=== PATIENT | male | born 1975 | race Caucasian/White ===

== ENCOUNTER 2017-07-18 11:58 | Emergency (ER) | payer MEDICARE, SELFPAY ==
[2017-07-18 12:01] VITALS: BP 155/75; PULSE 91; RESP 18; TEMP 36.3; O2SAT 93; BMI 40.6
--- NOTE | 2017-07-18 12:53 | ED.VISSUMM ---
- ER Visit Summary Date of Service: 07/18/17 Chief Complaint: [] Depression History of Present Illness: The patient is a 42 M [] complaining of 2 days of worsening depression. Denies paranoia. Does report a history of schizoaffective disorder compliant with his medications which include Zoloft, Vistaril, monthly envega. Denies suicidal or homicidal ideation. Patient is very conversational, but without pressured speech. Has normal logical sequential goal-directed thoughts. Reports he is here because his family and PCP thought it might be a good idea to get a psychiatric evaluation. Reports she is an established patient at the local counseling center however has not contacted them for these symptoms. Physical Examination: [] Afebrile, vital signs stable. 42-year-old male in no acute distress. Conversational. Cardiovascular exam is regular rate and rhythm. Lungs are clear to auscultation. Abdomen is soft and nontender. Test Results: [] None. Emergency Department Course and Treatment: [] Patient had a very benign presentation both during history and physical exam. He again reiterates that he is in no way homicidal or suicidal. I encouraged him to follow-up with his counselor he was amenable with this plan. Treatment Plan: [] Follow-up with local counseling center. Disposition: [] Discharge, stable. Impression: [] Depression History of schizoaffective disorder This note was generated with [employer] dictation software. It may contain incorrect words, spelling, and punctuation that were not noted in review of the chart prior to signing ED Disposition - Plan for ED Patient: Chief Complaint: Mental Health Referrals: Cade Machado DO [Primary Care Provider] -
--- NOTE | 2017-07-18 12:57 | ED.DEP ---
ED Disposition - Plan for ED Patient: Disposition: Home or Assisted Living Chief Complaint: Mental Health Instructions: ED Depression Referrals: Cade Machado DO [Primary Care Provider] -
[2017-07-18 13:08] VITALS: BP 144/97; PULSE 87; RESP 18; O2SAT 95
== END 2017-07-18 13:16 | disposition home or self-care (01) ==
PROVIDERS: Emergency Provider Emergency Medicine; Family Provider Family Medicine; PCP Family Medicine
DX: F32.9 Major depressive disorder, single episode, unspecified (principal); F25.9 Schizoaffective disorder, unspecified
CPT/HCPCS: 99283

== ENCOUNTER 2017-08-10 18:08 | Emergency (ER) | payer MEDICARE, SELFPAY ==
[2017-08-10 18:09] VITALS: BP 142/89; PULSE 105; RESP 16; TEMP 36.6; O2SAT 97; BMI 39.2
[2017-08-10] MEDS: Clindamycin HCl 150 MG Capsule 300 MG PO (18:25)
[2017-08-10] MEDS: Famotidine 20 MG Tablet 40 MG PO (18:25)
--- NOTE | 2017-08-10 18:28 | ED.DCSUM_ITS ---
- ER Visit Summary Date of Service: 08/10/17 Chief Complaint: Pruritic red rash History of Present Illness: The patient is a 42 M who presents with a pruritic red rash for 2 weeks. He denies history of being in a hot tub. He denies wheezing or difficulty breathing. He denies nausea or vomiting or orthostatic symptoms. He denies any chest pain or difficulty breathing. No one else at home has a rash. He states he has been applying diaper cream rash medicine with no benefit. He denies fever, chills or night sweats. Denies weight gain over the past several years. He denies any ocular, visual or auditory symptoms. He denies any cardiac respiratory symptoms. Denies GI symptoms. He denies swelling of his lips, tongue or throat. Physical Examination: Vital signs are marked for an elevated blood pressure 142/ 89. Heart rate 105. Head is atraumatic normocephalic. Pupils are equal round reactive. Extraocular muscles are intact. TMs are pearly white with landmarks noted. Nares patent with no drainage. Posterior pharynx without erythema or exudate. Uvula is midline. There is no evidence of angioedema. There is no dysphonia or dysphasia. Trachea is midline. There is no stridor with auscultation of the neck. Heart is regular without murmur, gallop or rub. S1 and S2 are normal. Lungs are clear to auscultation with good movement of air bilaterally. Abdomen is soft nontender. Patient has evidence of folliculitis as well as urticaria. Neuro exam is nonfocal. Test Results: None Emergency Department Course and Treatment: 300 mg clindamycin p.o. and Pepcid p.o. Treatment Plan: Prescription for clindamycin and Pepcid and follow-up with primary care physician Dr. Cade Machado Disposition: Discharged to home with appropriate home-going instructions Impression: 1. Pruritic erythematous rash, urticaria 2. Folliculitis This note was generated with [employer] dictation software. It may contain incorrect words, spelling, and punctuation that were not noted in review of the chart prior to signing ED Disposition - Plan for ED Patient: Disposition: Home or Assisted Living Chief Complaint: Allergic Reaction Instructions: ED Folliculitis, ED Urticaria Prescriptions: Famotidine [Pepcid] 20 mg PO BID #10 tab Clindamycin HCl 300 mg PO 4X/DAY #30 cap Referrals: Cade Machado DO [Primary Care Provider] - 1 Week if not improving
[2017-08-10 18:33] VITALS: PULSE 92; RESP 16; O2SAT 98
== END 2017-08-10 18:34 | disposition home or self-care (01) ==
PROVIDERS: Emergency Provider Emergency Medicine; Family Provider Family Medicine; PCP Family Medicine
DX: L50.9 Urticaria, unspecified (principal); L29.9 Pruritus, unspecified; L73.9 Follicular disorder, unspecified; E66.9 Obesity, unspecified; J45.909 Unspecified asthma, uncomplicated
CPT/HCPCS: 99283

== ENCOUNTER 2017-08-22 07:01 | Emergency (ER) | payer MEDICARE, SELFPAY ==
[2017-08-22 07:02] VITALS: BP 132/94; PULSE 98; RESP 16; TEMP 36.8; O2SAT 95; BMI 39.3
--- NOTE | 2017-08-22 07:24 | ED.DCSUM_ITS ---
- ER Visit Summary Date of Service: 08/22/17 Chief Complaint: [] Vomiting diarrhea since Saturday exposed to bad chicken History of Present Illness: The patient is a 42 M [] patient reports that he has schizoaffective disorder that stable he is on all of his meds he indicates he began having vomiting Saturday so did his after they attended awake where they believe that he ate some spoiled chicken, he also has had copious diarrhea, no fever no cough no chest pain abdominal pain he has no history of GI elements no antibiotics no blood per rectum or stool the vomiting and the diarrhea persisted he came in today for evaluation he states his vomiting copiously and having copious diarrhea as well. Indicates his is improved Physical Examination: [] Vital signs are within normal range she is in no distress his head neck chest exam unremarkable his lungs are clear the abdomen is obese but soft and nontender there is no rebound guarding or megaly the back is unremarkable skin is normal upper lower extremities unremarkable neurologically he is awake alert in no distress Test Results: [] Emergency Department Course and Treatment: [] Ported vomiting and diarrhea related to food as above with similar symptoms but she is improved he has had no fever no blood per rectum or stool or vomit. Clinically looks well his vital signs are normal at this time screening labs IV fluids IV Zofran Treatment Plan: [] The patient's lab studies are generally unremarkable please see those reports he has had no vomiting or diarrhea while he has been in the ED he is given a fluid challenge without difficulty. Abdomen remains soft and nontender on reevaluation, clinically looks well, at this time we will maintain a bland diet fluids Zofran follow-up his family doctor and return for change in symptoms he is comfortable with this plan Disposition: [] Home stable Impression: [] Reported vomiting and diarrhea This note was generated with [employer] dictation software. It may contain incorrect words, spelling, and punctuation that were not noted in review of the chart prior to signing ED Disposition - Plan for ED Patient: Chief Complaint: Nausea/Vomiting/Diarrhea Referrals: Cade Machado DO [Primary Care Provider] -
[2017-08-22] MEDS: 0.9% Normal Saline 1,000 ML 1000 ML IV (07:36)
[2017-08-22] MEDS: Ondansetron 4 MG/2 ML Vial IV (07:36)
[2017-08-22 07:40] LABS: Absolute Lymphocyte Count 1.17 X10^3/ul (0.83-4.51); Absolute Neutrophil Count 4.7 X10^3/uL (2.0-7.7); Basophil# 0.01 X10^3/uL; Basophil% 0.1 % (0-1); Color, Urine Yellow (Yellow); Eosinophil# 0.09 X10^3/uL; Eosinophils% 1.3 % (0-5); Glucose, Dipstick Normal (Normal); Hematocrit 47.8 % (40-54); Hemoglobin 15.7 g/dl (13.0-16.5); Ketone-Dipstick 5 mg/dl (Negative); Leukocyte Esterase-Dipstick 25 /ul (Negative); Lymphocyte # 1.17 X10^3/ul (4.0); Lymphocyte % 17.4 % (19-41); Mean Corp Hgb Conc 32.8 g/gl (32-36); Mean Corpuscular Volume 85.2 fL (80-94); Mean Platelet Vol. 9.5 fl (6.2-12.0); Monocyte# 0.73 X10^3/uL; Monocyte% 10.8 % (0-10); Neutrophil # 4.72 X10^3/uL (2.7-7.7); Neutrophil % 70.3 % (47-70); Nitrite-Dipstick Negative (Negative); Occult Blood-Urine 10 /ul (Negative); Platelet Count 150 K/mm3 (150-450); Protein-Dipstick 15 mg/dl (Negative); RBC Distribution Width CV 13.9 % (11.6-14.6); RBC Distribution Width SD 43.3 fl (35.1-43.9); Red Blood Count 5.61 M/mm3 (4.6-6.2); Specific Gravity, Urine 1.025 (1.002-1.030); Urine Clarity Sl. Cloudy (Clear); Urine Urobilinogen 4 mg/dl (Normal); White Blood Count 6.7 K/mm3 (4.4-11.0)
[2017-08-22 07:41] LABS: Urine Bilirubin Dipstick 1 mg/dL (Negative)
[2017-08-22 07:44] LABS: POSITIVE COUNT NO; POSITIVE DIFFERENTIAL NO; POSITIVE MORPHOLOGY NO
[2017-08-22 07:52] LABS: AST(SGOT) 32 U/L (15-37); Alanine Aminotransfer ALT/SGPT 63 U/L (16-61); Albumin, Serum 3.6 g/dL (3.2-5.0); Alkaline Phosphatase 92 U/L (45-117); Anion Gap 7 (5-15); BUN 13 mg/dL (7-18); BUN/Creat Ratio 13.8 RATIO (10-20); Bilirubin, Direct 0.24 mg/dL (0.00-0.30); Calcium,Total 8.7 mg/dL (8.5-10.1); Chloride 104 mmol/L (98-107); Creatinine, Serum 0.94 mg/dL (0.70-1.30); EST Glomerular Filtration Rate 93 mL/min (>60); Est Glom Filt Rate - Afr Amer 113 mL/min (>60); Estimated Creatinine Clearance 112.36 ml/min; Globulin 4.2 g/dL (2.2-4.2); Glucose 107 mg/dL (74-106); Lipase 99 U/L (73-393); Potassium 3.8 mmol/L (3.5-5.1); Protein, Total 7.8 g/dL (6.4-8.2); Sodium Level 139 mmol/L (136-145)
[2017-08-22 07:56] LABS: Mucous, Urine 1+ /hpf (<or=2+)
[2017-08-22 07:57] LABS: Bacteria 1+ /hpf (None Seen); Red Blood Cells-Urine 0-5 SEEN /hpf (0-5); Squamous Epithelial Cells - UA 0-5 SEEN /hpf (0-5); White Blood Cells 0-5 SEEN /hpf (0-5)
--- NOTE | 2017-08-22 08:00 | ED.DEP ---
ED Disposition - Plan for ED Patient: Chief Complaint: Nausea/Vomiting/Diarrhea Instructions: ED Diet Vomiting Diarrhea Prescriptions: Ondansetron [Zofran Odt] 4 mg PO Q8H PRN PRN #10 tab PRN Reason: Nausea Referrals: Cade Machado DO [Primary Care Provider] -
== END 2017-08-22 09:05 | disposition home or self-care (01) ==
PROVIDERS: Emergency Provider Emergency Medicine; Family Provider Family Medicine; PCP Family Medicine
DX: R19.7 Diarrhea, unspecified (principal); R11.2 Nausea with vomiting, unspecified
CPT/HCPCS: 80048; 80076; 81001; 83690; 85025; 99284; J7030; A4216

== ENCOUNTER 2017-08-29 09:31 | Emergency (ER) | payer MEDICARE, SELFPAY ==
[2017-08-29 09:32] VITALS: BP 135/101; PULSE 105; RESP 16; TEMP 36.4; O2SAT 95; BMI 38.0
[2017-08-29] MEDS: Ondansetron ODT 4 MG Tablet PO (09:38)
--- NOTE | 2017-08-29 09:38 | ED.VISSUMM ---
- ER Visit Summary Date of Service: 08/29/17 Chief Complaint: Head injury History of Present Illness: The patient is a 42 M presents to the emergency department with head injury. Patient was at home mopping his floor. He states he picked up the handle of the mop and struck a light fixture that was above him. It shattered the globe and the globe him on the head. He states that he felt dizzy but did not lose consciousness. He does not take anticoagulants. He states he has been mildly nauseated with headache since. He actually presented by squad. He states that he noticed a little bit of blood on his hand and thought he was bleeding from his head. He denies any visual change. He denies any weakness, numbness, or tingling. Physical Examination: Vital signs reviewed General: Well-nourished, well-developed Head: Normocephalic, atraumatic superficial abrasion of the left cheek, no laceration or contusion of the scalp Eyes: Pupils equal and reactive, extraocular muscles intact Neck, supple, no lymphadenopathy Heart: Regular rate and rhythm Respiratory: No distress, clear bilaterally Abdomen: Soft, nontender, nondistended, no peritoneal signs Back: Nontender Extremities: Nontender, no edema, no cords Skin: Normal color no rash Neuro: Alert and oriented, no focal or lateralizing deficits Test Results: [] Emergency Department Course and Treatment: I did spend time going through the patient's hairline and scalp. There is no evidence of laceration or retained foreign body. There was no active bleeding. He had a superficial abrasion of the face. His eyes are normal. There is no evidence of globe injury. The patient might have a mild concussion given his nausea. The patient was given Zofran and Naprosyn. He was observed. He had improvement of his symptoms. He continues to have a benign neurologic examination. He is a GCS of 15. There was no loss of consciousness. He do not feel head CT is necessary. She will be discharged with anti-inflammatories and antiemetics. He is counseled return with any worsening symptoms. Treatment Plan: [] Disposition: Discharge Impression: 1. Concussion 2. Facial abrasion This note was generated with [employer] software. It may contain incorrect words, spelling, and punctuation that were not noted in review of the chart prior to signing ED Disposition - Plan for ED Patient: Chief Complaint: Laceration Instructions: ED Concussion Prescriptions: Ondansetron [Zofran Odt] 4 mg PO Q8H PRN PRN #10 tab PRN Reason: Nausea Naproxen [Naprosyn] 500 mg PO BID PRN #20 tab Referrals: Cade Machado DO [Primary Care Provider] -
[2017-08-29] MEDS: Naproxen 500 MG Tablet PO (09:57)
[2017-08-29 10:05] VITALS: BP 143/98; PULSE 81; RESP 22; O2SAT 97
--- NOTE | 2017-08-29 10:06 | ED.RN ---
THIS NURSE REVIEWED D/C INSTRUCTIONS WITH PT.PT VERBALIZED UNDERSTANDING OF INSTRUCTIONS. PT DENIES FURTHER NEEDS OR QUESTIONS AT THIS TIME. PT AMBULATES FROM ROOM ON OWN WITHOUT ASSISTANCE FROM STAFF
== END 2017-08-29 10:07 | disposition home or self-care (01) ==
LOC: ED 10:04
PROVIDERS: Emergency Provider Emergency Medicine; Family Provider Family Medicine; PCP Family Medicine
DX: S06.0X0A Concussion without loss of consciousness, initial encounter (principal); S00.91XA Abrasion of unspecified part of head, initial encounter; W20.8XXA Other cause of strike by thrown, projected or falling object, initial encounter; Y93.E5 Activity, floor mopping and cleaning; Y92.009 Unspecified place in unspecified non-institutional (private) residence as the place of occurrence of the external cause; Y99.9 Unspecified external cause status; Z72.0 Tobacco use; F31.9 Bipolar disorder, unspecified
CPT/HCPCS: 99285

== ENCOUNTER 2018-01-10 21:12 | Emergency (ER) | payer MEDICARE, SELFPAY ==
[2018-01-10 21:13] VITALS: BP 117/80; PULSE 94; RESP 14; TEMP 36.8; O2SAT 97; BMI 40.2
--- NOTE | 2018-01-10 21:35 | ED.VISSUMM ---
- ER Visit Summary Date of Service: 01/10/18 Chief Complaint: Francisco Javiero Platt History of Present Illness: The patient is a 42 M patient presenting for evaluation secondary to a GI illness. Patient reports that he ate Francisco Javiero Platt today, and shortly thereafter he started to get severe abdominal cramping and profuse watery nonbloody non-mucousy diarrhea. Patient reports that he has had up to 5 episodes of this diarrhea. He states that he has nausea but no vomiting. His abdominal pain is crampy and nonlocalizing with no exacerbating relieving factors. Has been associated with any sort of fever or urinary symptoms. Nobody else in the family has anything similar. Patient endorses a headache associated with this denies any visual changes numbness or weakness. Physical Examination: Vital signs are within normal limits, patient is afebrile. General: Patient is well-nourished well-developed and in no acute distress. Head: Normocephalic, atraumatic Eyes: Pupils equal round and reactive bilaterally, extra occular motion intact bialterally ENT: Moist mucous membranes Neck: Supple, no lymphadenopathy, no JVD, no meningismus CVS: Heart regular rate and rhythm, no murmurs, rubs or gallops, radial pulses 2+ bilaterally Resp: Respirations nondistressed, lung sounds clear bilaterally Abdomen: Soft, minimal nonlocalizing abdominal tenderness with no guarding or rebound noted, nondistended, no palpable masses, normal bowel sounds Back: Nontender Extremities: Nontender, atraumatic, active full range of motion, no peripheral edema Skin: warm, no rashes, no petechia Neuro: Alert and oriented x 4, CN 2-12 intact, no lateralizing neurological defecits Psyc: Normal affect Test Results: None indicated Emergency Department Course and Treatment: Patient presented for evaluation secondary to a GI illness. He has benign physical exam, appears well-hydrated, and I do not believe that there is any indication for imaging or lab tests at this time. Patient was treated symptomatically with Toradol Bentyl and Imodium. He will be discharged with a course of Bentyl. He was recommended on aggressive hydration and follow-up with primary care as needed Disposition: Discharge Impression: 1. Enteritis This note was generated with [employer] dictation software. It may contain incorrect words, spelling, and punctuation that were not noted in review of the chart prior to signing ED Disposition - Plan for ED Patient: Disposition: Home or Assisted Living Chief Complaint: Nausea/Vomiting/Diarrhea Diagnosis: Enteritis Instructions: ED Gastroenteritis Vs Food Poison Prescriptions: Dicyclomine HCl [Bentyl] 20 mg PO TIDAC #20 cap Referrals: Cade Machado DO [Primary Care Provider] - As Needed
[2018-01-10] MEDS: Loperamide 2 MG Capsule 4 MG PO (21:41)
[2018-01-10] MEDS: Dicyclomine 10 MG Capsule 20 MG PO (21:41)
[2018-01-10] MEDS: Ketorolac 30 MG/ML Syringe IM (21:41)
== END 2018-01-10 21:51 | disposition home or self-care (01) ==
PROVIDERS: Emergency Provider Emergency Medicine; Family Provider Family Medicine; PCP Family Medicine
DX: K52.9 Noninfective gastroenteritis and colitis, unspecified (principal)
CPT/HCPCS: 96372; 99283

== ENCOUNTER 2018-05-23 17:02 | Emergency (ER) | payer MEDICARE, SELFPAY ==
[2018-05-23 17:04] VITALS: BP 141/86; PULSE 89; RESP 18; TEMP 36.6; O2SAT 99; BMI 36.6
--- NOTE | 2018-05-23 17:25 | ED.VISSUMM ---
- ER Visit Summary Date of Service: 05/23/18 Chief Complaint: Headache History of Present Illness: The patient is a 43 M presenting with headache, neck pain. He states this has been ongoing for the past 4 days. It was gradual in onset and has been worsening. He has taken Tylenol at home with some relief. He denies trauma. Denies fever. He has pain that starts both sides of his neck and radiates to the back of his head. Denies other complaints. Physical Examination: Vitals are stable. Patient is afebrile. Alert no acute distress. HEENT exam is unremarkable. Neck is supple. No meningismus Lungs are clear and equal bilaterally. Heart is regular rate and rhythm. Extremities are unremarkable. Skin is warm and dry. No focal neurologic deficit. Normal strength and sensation Remainder of exam is unremarkable. Emergency Department Course and Treatment: Patient was given Reglan, Benadryl. On reevaluation, he is feeling improved. He is given prescription for Naprosyn. He is advised to follow-up with his primary care physician. Advised return to ED if worsening complaints. Disposition: Discharge home Impression: Tension headache This note was generated with [employer] dictation software. It may contain incorrect words, spelling, and punctuation that were not noted in review of the chart prior to signing ED Disposition - Plan for ED Patient: Instructions: ED Headache Tension Prescriptions: Naproxen [Naprosyn] 500 mg PO BID PRN #20 tablet Referrals: Cade Machado DO [Primary Care Provider] -
[2018-05-23] MEDS: 0.9% Normal Saline 1,000 ML 999 ML IV (17:34)
[2018-05-23] MEDS: DiphenhydrAMINE 50 MG/ML Syringe 25 MG IV (17:34)
[2018-05-23] MEDS: Metoclopramide 10 MG/2 ML Vial 5 MG IV (17:34)
--- NOTE | 2018-05-23 18:27 | ED.DEP ---
ED Disposition - Plan for ED Patient: Instructions: ED Headache Tension Prescriptions: Naproxen [Naprosyn] 500 mg PO BID PRN #20 tablet Referrals: Cade Machado DO [Primary Care Provider] -
[2018-05-23 18:42] VITALS: BP 129/96; PULSE 90; RESP 18; O2SAT 98
== END 2018-05-23 18:43 | disposition home or self-care (01) ==
LOC: ED 18:36
PROVIDERS: Emergency Provider Emergency Medicine; Family Provider Family Medicine; PCP Family Medicine
DX: G44.209 Tension-type headache, unspecified, not intractable (principal); M54.2 Cervicalgia; F41.9 Anxiety disorder, unspecified; F20.9 Schizophrenia, unspecified
CPT/HCPCS: 96361; 96374; 96375; 99283; J7030

== ENCOUNTER 2018-06-30 11:52 | Emergency (ER) | payer MEDICARE, SELFPAY ==
[2018-06-30 11:54] VITALS: BP 132/79; PULSE 94; RESP 17; TEMP 36.8; O2SAT 94; BMI 40.2
--- NOTE | 2018-06-30 13:06 | ED.DCSUM_ITS ---
- ER Visit Summary Date of Service: 06/30/18 Chief Complaint: Back pain History of Present Illness: The patient is a 43 M who presents the emergency department with 3 days of low back pain. He states that it began during the night. He states is progressively gotten worse. He notes he feels some pain radiating down the back of his left leg. He denies any trauma. No previous back injuries. No bowel or bladder dysfunction. No IV drug use. No rashes or fevers. Physical Examination: Afebrile vital signs stable Gen: Well-nourished well-developed Head: Normocephalic atraumatic Eyes: Perrl EOMI ENT: TMs clear no rhinorrhea moist mucous membranes Neck: Supple no lymphadenopathy no JVD nontender CVS: Regular rate rhythm no murmurs normal S1-S2 Respiratory: No distress clear to auscultation bilaterally chest nontender Abdomen: Soft nontender nondistended normal bowel sounds no masses Back: Lower lumbar paraspinal musculature that is tender to palpation. He has painful range of motion. Extremity: Nontender no edema Skin: Normal color no rash Neuro: alert orientated ?3 CN II-XII intact normal strength sensation reflexes gait cerebellar Psych: Normal affect normal mood Emergency Department Course and Treatment: Patient will be started on Motrin and Flexeril. I encouraged him to begin a stretching routine if he is not improving he would benefit from physical therapy as well as weight loss. Patient understands this plan and is comfortable with it. Impression: 1. Lumbar muscle spasm acute This note was generated with [employer] dictation software. It may contain incorrect words, spelling, and punctuation that were not noted in review of the chart prior to signing ED Disposition - Plan for ED Patient: Disposition: Home or Assisted Living Instructions: ED Spasm Back No Trauma Prescriptions: Ibuprofen [Motrin] 800 mg PO TID PRN PRN #20 tab PRN Reason: Pain Cyclobenzaprine [Flexeril] 10 mg PO TID PRN #15 tab PRN Reason: Muscle Spasm Referrals: Cade Machado DO [Primary Care Provider] - 1 Week if not improving
[2018-06-30 13:48] VITALS: PULSE 89; RESP 14; O2SAT 99
== END 2018-06-30 13:48 | disposition home or self-care (01) ==
PROVIDERS: Emergency Provider Emergency Medicine; Family Provider Family Medicine; PCP Family Medicine
DX: M62.830 Muscle spasm of back (principal); F20.9 Schizophrenia, unspecified
CPT/HCPCS: 99282

== ENCOUNTER → 2018-07-08 10:37 | Outpatient (CLI) | payer MEDICARE, SELFPAY ==
[2018-06-30 11:54] VITALS: BMI 40.2
[2018-07-08 12:27] LABS: Amphetamine Urine VISTA NEGATIVE (<1000 ng/mL); Barbiturate Urine VISTA NEGATIVE (< 200 ng/mL); Benzodiazepine Urine VISTA NEGATIVE (< 200 ng/mL); Cocaine Urine VISTA NEGATIVE (< 300 ng/mL); Ecstacy Urine VISTA NEGATIVE (< 500 ng/mL); Methadone Urine VISTA NEGATIVE (< 300 ng/mL); PCP Urine VISTA NEGATIVE (< 25 ng/mL); THC Urine VISTA NEGATIVE (< 50 ng/mL); Vista UDS pH Range 5
== END ==
PROVIDERS: Family Provider Family Medicine; PCP Family Medicine; Referring Provider Psychiatry & Neurology Psychiatry; Visit Provider Psychiatry & Neurology Psychiatry
DX: F19.10 Other psychoactive substance abuse, uncomplicated (principal); Z79.899 Other long term (current) drug therapy
CPT/HCPCS: 80307

== ENCOUNTER → 2018-12-02 07:50 | Outpatient (CLI) | payer MEDICARE, SELFPAY ==
--- NOTE | 2018-12-02 08:05 | RAD_ITS ---
CLINICAL HISTORY: Male, 45 years old. GERD, with history of pneumonia, possibly aspiration PROCEDURE: Esophagram Technique: Multiple fluoroscopic assessment performed after administration of double contrast medium, followed by single contrast medium with images acquired along the esophagus. Findings: Single and also double contrast study of the esophagus demonstrate that there is unremarkable mucosal pattern of the esophagus, without evidence of intraluminal lesion or stricture. Overall unremarkable peristalsis through the esophagus. There is no evidence of Zenker's diverticulum proximally. There is mild degree of gastroesophageal reflux, up to the distal one third of esophagus. No evidence of sliding hiatal hernia is noted. Evaluation with a 0.5 inch barium pill demonstrates unremarkable peristalsis through the esophagus, with unremarkable emptying into the stomach without delay. RAD/Esophagus Only IMPRESSION: Mild reflux to distal one third of the esophagus at the gastroesophageal junction. Unremarkable mucosal pattern of the esophagus. No evidence of focal stricture or narrowing. No evidence of Zenker's diverticulum. No evidence of sliding hiatal hernia is noted. Normal peristalsis of a 0.5 inch through the esophagus and the gastroesophageal junction. Electronically Signed: Cain Sanchez MD at 14:49 EDT Tel [phone], Service support ,
== END ==
PROVIDERS: Family Provider Family Medicine; PCP Family Medicine; Referring Provider Otolaryngology; Visit Provider Otolaryngology
DX: R13.10 Dysphagia, unspecified (principal); K21.9 Gastro-esophageal reflux disease without esophagitis
CPT/HCPCS: 74220

== ENCOUNTER → 2020-09-23 09:47 | Outpatient (CLI) | payer MEDICARE, SELFPAY ==
[2019-03-10 10:45] VITALS: BMI 40.2
[2020-09-23 10:04] LABS: Hematocrit 46.1 % (40-54); Hemoglobin 14.4 g/dL (13.0-16.5); Mean Corp Hgb Conc 31.2 g/dL (32-36); Mean Corpuscular Hgb 26.9 pg (27.0-32.0); Mean Platelet Vol. 9.7 fl (6.2-12.0); Platelet Count 156 K/mm3 (150-450); RBC Distribution Width SD 46.8 fl (35.1-43.9); Red Blood Count 5.36 M/mm3 (4.6-6.2); White Blood Count 6.2 K/mm3 (4.4-11.0)
[2020-09-23 10:22] LABS: Hemoglobin A1c 5.9 % (3.8-5.6)
[2020-09-23 10:32] LABS: Vitamin B12 1155 pg/mL (211-911); Vitamin D,25 Hydroxy 10.8 ng/mL
[2020-09-23 11:30] LABS: ALB/GLOB Ratio 0.8 RATIO (0.9-2.4); AST(SGOT) 102 U/L (15-37); Alanine Aminotransfer ALT/SGPT 133 U/L (16-61); Albumin, Serum 3.4 g/dL (3.2-5.0); Alkaline Phosphatase 121 U/L (45-117); Anion Gap 6 (5-15); BUN 10 mg/dL (7-18); BUN/Creat Ratio 9.7 RATIO (10-20); Calcium,Total 8.5 mg/dL (8.5-10.1); Chloride 105 mmol/L (98-107); Cholesterol 176 mg/dL (200); Creatinine, Serum 1.03 mg/dL (0.70-1.30); EST Glomerular Filtration Rate 83 mL/min (>60); Est Glom Filt Rate - Afr Amer 100 mL/min (>60); Globulin 4.5 g/dL (2.2-4.2); Glucose 126 mg/dL (74-106); High Density Lipoprotein 45 mg/dL; Potassium 4.2 mmol/L (3.5-5.1); Prolactin 18.6 ng/mL; Protein, Total 7.9 g/dL (6.4-8.2); Sodium Level 139 mmol/L (136-145); Thyroid Stim Hormone (TSH) 2.05 uIU/mL (0.358-3.74); Triglycerides 94 mg/dL; Very Low Density Lipoprotein 19 mg/dL (5-40)
== END ==
PROVIDERS: Referring Provider Psychiatry & Neurology Psychiatry; Visit Provider Psychiatry & Neurology Psychiatry
DX: R53.83 Other fatigue (principal); Z79.899 Other long term (current) drug therapy
CPT/HCPCS: 36415; 80053; 80061; 82140; 82306; 82607; 82746; 83036; 84146; 84443; 85027

== ENCOUNTER 2020-11-21 15:25 | Emergency (ER) | payer MEDICARE, SELFPAY ==
[2019-03-10 10:45] VITALS: BMI 40.2
[2020-11-21 15:27] VITALS: BP 151/94; PULSE 88; RESP 14; TEMP 36.1; O2SAT 96; BMI 46.1
== END 2020-11-21 16:35 ==
LOC: ED 16:49
DX: S49.90XA Unspecified injury of shoulder and upper arm, unspecified arm, initial encounter (principal)

== ENCOUNTER 2021-11-18 17:21 | Emergency (ER) | payer MEDICARE, MEDICAID, SELFPAY ==
[2021-11-18 17:22] VITALS: BP 136/81; PULSE 108; RESP 15; TEMP 36.8; O2SAT 94; BMI 36.6
--- NOTE | 2021-11-18 17:47 | EX.ED.DYSGE1 ---
HPI History of Present Illness Chief Complaint: General Illness Narrative Narrative: 46-year-old male presenting with fever, chills, body aches, headache since earlier today. He states he last took Tylenol at 8 AM. He states he has had both of his COVID vaccines. Patient has no known sick contacts. No nausea or vomiting. He is coughing a little bit but no production of sputum. PFSH PFS Medical History Arthritis Home Medications sertraline 100 mg tablet 150 mg PO DAILY 05/24/16 [History Last Taken 08/10/17] ibuprofen 800 mg tablet 800 mg PO TID PRN PRN Pain #20 tabs 06/30/18 [Rx Last Taken Unknown] Allergy/AdvReac Type Severity Reaction Status Date / Time egg Allergy Anaphylaxis Verified 11/18/21 17:26 morphine Allergy Rash Verified 11/18/21 17:26 Penicillins Allergy Rash Verified 11/18/21 17:26 Family History Other Dementia Social History Smoking Status: Never smoker alcohol intake: never ROS ROS ED Constitutional Constitutional ED: Reports chills and fever(s) Eyes Eyes: Denies change in vision or diplopia ENT ENT ED: Reports sore throat; Denies rhinorrhea Cardiovascular Cardiovascular: Denies chest pain or palpitations Respiratory/Chest Respiratory/Chest: Reports cough; Denies dyspnea or dyspnea on exertion Gastrointestinal Gastrointestinal: Denies abdominal pain, constipation or diarrhea Genitourinary Genitourinary ED: Denies dysuria or hematuria Musculoskeletal Musculoskeletal: Denies arthralgias or back pain Integumentary Denies abscess or Abrasions Neurologic Neurologic: Reports headache(s); Denies paresthesias or weakness Psychiatric Psychiatric: Denies anxiety or depression EXAM Physical Exam Const Vital Signs: 11/18/21 17:22 11/18/21 18:08 Temperature 98.3 F Temperature Source Temporal Pulse Rate 108 H Respiratory Rate 15 Respiratory Effort Normal Non-Labored Respiratory Pattern Normal Blood Pressure 136/81 H Blood Pressure Mean 99 Pulse Ox 94 Oxygen Delivery Method Room Air Positive well nourished General Appearance ED: NAD; Negative for pallor HEENT Reports moist mucous membranes Negative for trauma Eyes PERRL and EOMs intact bilaterally General Eye ED: Negative for pale conjunctiva or scleral icterus Neck no lymphadenopathy Chest Wall inspection of chest normal and palpation of chest normal Resp normal respiratory effort and clear to auscultation bilaterally Cardio regular rate and regular rhythm GI normal to inspection, nondistended, normoactive bowel sounds Extremity General Extremety ED: Yes edema and tenderness General Extremity: edema Neuro oriented x3 and CN's II-XII intact bilaterally Sensorium / Orientation: alert Psych mental status grossly normal Skin no rashes or lesions noted General Skin Exam: Negative for jaundice or pallor MDM MDM MDM Narrative Medical decision making narrative: Patient presenting with viral syndrome. He states he took his last medication 8 AM. He was given ibuprofen here. Rapid COVID is negative. Vital signs are stable and he is afebrile. Lungs clear to auscultation bilaterally. Heart regular rate and rhythm without murmur. Abdomen soft nontender. Patient counseled on alternate Tylenol and ibuprofen at home for body aches, headache, fevers. He is given return precautions. I feel he stable for discharge. Impression: 1. Febrile illness 2. Myalgias 3. Viral syndrome 4. Headache Lab Data Attestation: I reviewed the patient's lab results. Discharge Plan Triage Chief Complaint: General Illness ED Provider: Wander Adhikari Dx/Rx/DC Orders Instructions: ED Viral Syndrome (Adult) Prescriptions: No Action sertraline 100 MG tablet 150 mg PO DAILY ibuprofen 800 MG tablet 800 mg PO TID PRN PRN (Reason: Pain) Qty: 20 0RF Primary Care Provider: Ryan East Referrals: Ryan East MD [Primary Care Provider] - Disposition Disposition: Home, Self Care
[2021-11-18] MEDS: Ibuprofen 600 MG Tablet PO (18:07)
== END 2021-11-18 19:43 | disposition home or self-care (01) ==
PROVIDERS: Emergency Provider Student in an Organized Health Care Education/Training Program; PCP Family Medicine; Visit Provider Student in an Organized Health Care Education/Training Program
DX: B34.9 Viral infection, unspecified (principal); R51.9 Headache, unspecified; M79.10 Myalgia, unspecified site; R68.83 Chills (without fever); R50.9 Fever, unspecified
CPT/HCPCS: 87811; 99283

== ENCOUNTER 2022-01-21 23:55 | Emergency (ER) | payer BC, MEDICAID, SELFPAY ==
[2022-01-21 23:56] VITALS: BP 145/87; PULSE 114; RESP 20; TEMP 36.8; O2SAT 95; BMI 46.7
[2022-01-22] MEDS: HYDROmorphone 0.5 MG/0.5 ML SYRINGE IM (00:37)
[2022-01-22] MEDS: cycloBENZAPRine HCl 10 MG Tablet PO (00:37)
--- NOTE | 2022-01-22 01:50 | EDS_ITS ---
HPI History of Present Illness Chief Complaint: Back Informant: patient Narrative Narrative: Patient is a 46-year-old male with history of schizophrenia unspecified presenting with back pain. Patient states he helped his sister move a couch couple days ago and felt a pull/pop in his mid back. Since then he has had significant pain in his back. It is worse when he tries to lay flat or when he walks/moves around. States he intermittently gets tingling in the front of his thigh that radiates to his medial lower leg. Denies any pain in his leg. Denies any bowel or bladder incontinence. Denies any fever or chills. Denies any saddle anesthesia. Has been taking Advil and Motrin with no significant relief of his symptoms. Was laying down tonight and the pain was so bad he felt short of breath which is what brought him to the emergency room. Denies any history of any back issues. No other complaints at this time. [facility] Medical History Arthritis Home Medications cyclobenzaprine 10 mg tablet 10 mg PO TID PRN muscle spasm #20 tabs 01/22/22 [Rx Last Taken Unknown] Allergy/AdvReac Type Severity Reaction Status Date / Time egg Allergy Anaphylaxis Verified 01/22/22 00:00 morphine Allergy Rash Verified 01/22/22 00:00 Penicillins Allergy Rash Verified 01/22/22 00:00 Family History Other Dementia Social History Smoking Status: Never smoker alcohol intake: never ROS ROS ED Constitutional Constitutional ED: Denies chills or fever(s) Eyes Eyes: Denies change in vision ENT ENT ED: Denies ear pain or rhinorrhea Cardiovascular Cardiovascular: Denies chest pain Respiratory/Chest Respiratory/Chest: Reports dyspnea; Denies dyspnea on exertion Gastrointestinal Gastrointestinal: Denies abdominal pain, diarrhea or vomiting Musculoskeletal Musculoskeletal: Reports back pain; Denies arthralgias, myalgias or neck pain Integumentary Denies rash Neurologic Neurologic: Reports paresthesias RLE; Denies headache(s) or weakness Psychiatric Psychiatric: Reports anxiety; Denies depression Hematologic/Lymphatic Hematologic/Lymphatic: Denies easy bleeding or easy bruising EXAM Physical Exam Const Vital Signs: 01/21/22 23:56 Temperature 98.3 F Temperature Source Oral Pulse Rate 114 H Respiratory Rate 20 H Blood Pressure 145/87 H Blood Pressure Mean 106 Pulse Ox 95 Oxygen Delivery Method Room Air Positive well nourished and well developed General Appearance ED: well developed and NAD HEENT Reports moist mucous membranes Eyes PERRL and EOMs intact bilaterally Neck supple and no JVD Resp normal respiratory effort and clear to auscultation bilaterally Cardio regular rate, regular rhythm and no murmurs GI normal to inspection, nondistended, normoactive bowel sounds and soft to palpation Back/Spine Back/Spine Narrative: No midline tenderness. Diffuse tenderness to palpation of the bilateral thoracic paraspinal region. Patient seems to have spasms when he attempts to move or shift himself in the bed. Negative straight leg test bilaterally. Extremity normal to inspection Extremity Narrative: Normal strength and sensation in all dermatomes. No deformity of the extremities. Neuro oriented x3 and no sensory deficits noted Motor Exam: strength 5/5 throughout Psych mental status grossly normal Skin no rashes or lesions noted and no wounds MDM MDM MDM Narrative Medical decision making narrative: Patient evaluated for 3 days of mid back pain. He does have some paresthesias to his right leg. Pain not really consistent with sciatica. I suspect he has spasms in his back given how he acts with his pain when he attempts to move. Is given a dose of IM Dilaudid with good improvement of his pains. Started on Flexeril. Does have a ride home. Is given a short course of Flexeril. Counseled on continuing [id number] naproxen and Tylenol. Encouraged follow-up with primary care doctor. Discussed how imaging is not indicated with acute atraumatic back pain in given no red flag symptoms. He verbalizes agreement of transplant. Discharged home in stable condition. Discharge Plan Triage Chief Complaint: Back ED Provider: Marine Orosco Dx/Rx/DC Orders Clinical Impression: Acute bilateral thoracic back pain, Back muscle spasm Instructions: ED Back Spasm, No Trauma Prescriptions: New cyclobenzaprine 10 mg tablet 10 mg PO TID PRN (Reason: muscle spasm) Qty: 20 0RF Primary Care Provider: Ryan East Referrals: Ryan East MD [Primary Care Provider] - Activity Restrictions/Additional Instructions: Follow-up with your primary care doctor later this week if not improving. Continue to take 500 mg of naproxen twice a day in conjunction with [id number] Tylenol. You been prescribed a muscle relaxer. Continue to use heating pad for her back. Stretching can be good for this. Return if you have worsening symptoms or further concerns. Disposition Disposition: Home, Self Care
== END 2022-01-22 02:05 | disposition home or self-care (01) ==
PROVIDERS: Emergency Provider Emergency Medicine; PCP Family Medicine; Visit Provider Emergency Medicine
DX: M62.830 Muscle spasm of back (principal); F20.9 Schizophrenia, unspecified; M54.6 Pain in thoracic spine; R06.09 Other forms of dyspnea; R20.2 Paresthesia of skin
CPT/HCPCS: 99283